=== PATIENT | female | born 1980 | race Caucasian/White ===

== ENCOUNTER 2016-11-01 03:26 | Outpatient (CLI) | payer OTHER ==
[2016-11-01 04:00] VITALS: BMI 35.9
[2016-11-01] MEDS ORDERED: ONDANSETRON 4 MG/2ML 2 ML VIAL IV ONE (04:22)
[2016-11-01] MEDS ORDERED: IV START KIT ONE (04:23)
[2016-11-01] MEDS ORDERED: LACTATED RINGERS 1,000 ML IV SCH ×2 (04:30→05:40)
[2016-11-01] MEDS ORDERED: PANTOPRAZOLE SODIUM 40 MG VIAL IV ONE (05:39)
[2016-11-01] MEDS ORDERED: SODIUM CHLORIDE 0.9% FLUSH 10 ML ONE ×2 (05:45→06:06)
--- NOTE | 2016-11-01 07:38 | PCMOBT ---
OB Triage - Subjective JANETH DAMICO is a 36 year old at 38 who presents to L & D triage c/ o nausea, vomiting, and diarrhea since yesterday. She was having abdominal pain and was worried about the . She is scheduled for c/section #3 and BTL. Review of Systems: Nausea, Vomiting, Movement, Other (No vag bleeding, no discharge) - Physical Exam Neurological: Alert, Oriented X4 Respiratory: Clear to Auscultation Cardiac: Regular Rate Abdomen: Soft, Non Tender, Gravid Contractions: Present (mild and irregular) - Pelvic Exam Cervix: Closed and Long (per RN) - Heart Tones Baseline: 130 (variability improved after 2 liters of fluid.) Variability: Minimal Accelerations: Present Decelerations: Non-Present - Assessment/ Plan 36 year old , prev c/section x2, at 38w6d here for n/v/diarrhea. Pt thought to have a viral gastroenteritis. She felt much better after IV fluids and zofran and pantoprazole. She has had some PO intake. FH is category 1 with no evidence of labor. Pt is discharged home to recuperate further. The plan is that she will return tomorrow for her RCS and BTL. Return precautions given: including that she should return if she has decreased movement, if she has LOF, vaginal bleeding or contractions such that she thinks she's in labor.
== END 2016-11-01 07:12 | disposition home or self-care (01) ==
LOC: FBCOUT 03:26 → FBC 03:26 → FBCOUT 07:12
PROVIDERS: ATTEND Obstetrics & Gynecology
DX: O21.2 Late vomiting of pregnancy (principal); O26.893 Other specified pregnancy related conditions, third trimester; R19.7 Diarrhea, unspecified; Z3A.38 38 weeks gestation of pregnancy
CPT/HCPCS: 96374; 96361; 59025; 81002; C9113; J2405; J7120 ×2; G0463

== ENCOUNTER 2016-11-02 05:16 | Inpatient (IN) | payer OTHER ==
--- NOTE | 2016-10-29 11:54 | HP ---
JANETH DAMICO : 1980 DATE OF ADMISSION: November 02, 2016 HISTORY OF PRESENT ILLNESS: This is a 36-year-old female admitted for a repeat section at 39 weeks. She offers no complaints and at the last exam the baby was moving. OB HISTORY: 3, para 2, 0/0/2, two sections. The first one was done for prolonged rupture of membranes and pushed three hours. That was an 8 pound 6 ounce baby. The second one was a repeat section of a 7 pound 12 ounce baby. BOLT MAN HISTORY: Menarche 11 times 36 times 5. PAST MEDICAL HISTORY: Oral herpes. ALLERGIES: DAIRY FOODS. PAST SURGICAL HISTORY: 1. section times two. 2. Urethral dilatation as a child. SOCIAL HISTORY: Nonsmoker, nondrinker. FAMILY HISTORY: Negative. REVIEW OF SYSTEMS: Baby is moving and noncontributory other than that. PHYSICAL EXAM: GENERAL: This is a healthy female in no acute distress. HEENT: Normal. NECK: Supple. Thyroid not palpable. BREASTS: Soft, no masses. HEART: Regular sinus rhythm. LUNGS: Clear. ABDOMEN: Gravid 39 cm. heart present. Vertex presentation and Pfannenstiel incision. PELVIC: Last pelvic exam cervix was fingertip dilated, 20% effaced, vertex -3. ASSESSMENT AND PLAN: Term and previous section, multiparity. She is requesting a tubal ligation. Risks, reasons, and complications, living will and alternatives were discussed. Failure of tubal ligation quoted as 1 to 2% discussed all in lay person's terms and all questions answered.
[2016-11-02] MEDS ORDERED: LACTATED RINGERS 1,000 ML ONE (05:21)
[2016-11-02] MEDS ORDERED: IV START KIT ONE (05:21)
[2016-11-02] MEDS ORDERED: CEFAZOLIN SODIUM 2 GRAM DUPLEX 2 G in Premix (D5W) 50 ml 1 EACH IV PRN (05:24)
[2016-11-02] MEDS: LACTATED RINGERS 1,000 ML IV SCH ×4 (05:30→12:34)
[2016-11-02] MEDS ORDERED: CEFAZOLIN SODIUM 2 GRAM DUPLEX 50 ML IV ONE (05:48)
[2016-11-02 05:51] LABS: HEMATOCRIT 39.6 % (37.0-47.0); HEMOGLOBIN 12.9 gm/l (12.0-16.0); MEAN CELL VOLUME 85.7 fl (81.0-99.0); MEAN CORPUSCULAR HEMOGLOBIN 27.9 pg (27.0-31.0); MEAN CORPUSCULAR HGB CONC 32.6 g/dl (33.0-37.0); RED CELL DISTRIBUTION WIDTH 14.4 % (11.5-14.5)
[2016-11-02 06:12] VITALS: BMI 35.6
[2016-11-02] MEDS ORDERED: SPINAL PROCEDURAL TRAY 1 EACH ONE (07:06)
[2016-11-02] MEDS ORDERED: OXYTOCIN 10 UNITS/ML VIAL ONE ×3 (07:08→08:26)
[2016-11-02] MEDS ORDERED: MORPHINE SULFATE (DURAMORPH) 1 MG/ML 10ML AMP ONE (07:08)
[2016-11-02] MEDS ORDERED: ONDANSETRON 4 MG/2ML 2 ML VIAL ONE (07:08)
[2016-11-02] MEDS ORDERED: EPHEDRINE SULFATE UD SYR 25 MG 25 MG/5 ML SYRINGE IV ONE ×2 (07:24→08:40)
[2016-11-02] MEDS ORDERED: NALOXONE HCL 0.4 MG/ML VIAL IV PRN (08:00)
[2016-11-02] MEDS ORDERED: ONDANSETRON 4 MG/2ML 2 ML VIAL IV PRN ×2 (08:00→09:15)
[2016-11-02] MEDS ORDERED: PROMETHAZINE HCL 25 MG/ML VIAL IM PRN (08:00)
[2016-11-02] MEDS ORDERED: EPHEDRINE SULFATE 50 MG/ML 1ML VIAL IV PRN (08:00)
[2016-11-02] MEDS ORDERED: HYDROMORPHONE HCL 2 MG/ML SYRINGE IV PRN (08:00)
[2016-11-02] MEDS ORDERED: DIPHENHYDRAMINE HCL 50 MG/1 ML VIAL IV PRN ×2 (08:00→09:15)
[2016-11-02] MEDS ORDERED: FLU VACC 2016-17 (36MO-64Y)/PF 60 MCG/0.5 ML SYRINGE IM V ONE (08:18)
[2016-11-02] MEDS ORDERED: FENTANYL 100 MCG/2 ML VIAL ONE (08:44)
--- NOTE | 2016-11-02 09:14 | PCMBPN ---
Brief Post Op Note: Date of Procedure: 11/02/16 Start Time: Preoperative Diagnosis: 1. intrauterine at term, multiparity, previous cesarian section Postoperative Diagnosis: 1. Same Procedure: repeat lower segment cesarian section, bilateral tubal ligation by mary technique Surgeon: Justus Delgado Assist:ms clarky kalyani Anesthesia: ms benitez, spinal Findings: term sized uterus, both ovaries and tubes normal, clear amniotic fluid , live baby girl, 9/9, oumar position, placenta intact Condition: stable Complications: none IV Fluids: mLs of LR Urine Output: clear yellow urine mLs Estimated Blood Loss: 700 mLs Tourniquet Time: N/A Specimens: N/A Implants: Drains: N/A closure: lori patient tolerated procedure well and was returned to recovery room in stable condition with warren draining clear yellow urine.
[2016-11-02] MEDS ORDERED: LANOLIN 50 APPLIC/7G TUBE TP PRN (09:15)
[2016-11-02] MEDS ORDERED: DIPHENHYDRAMINE HCL 25 MG CAPSULE PO PRN (09:15)
--- NOTE | 2016-11-02 10:18 | OP ---
Adenike Khan : 1980 [id number] NAME OF OPERATION: Repeat lower segment section and a bilateral tubal ligation by Marion technique. PREOPERATIVE DIAGNOSES: 1. Intrauterine at term. 2. Previous section. 3. Multiparity. POSTOPERATIVE DIAGNOSES: 1. Intrauterine at term. 2. Previous section. 3. Multiparity. MANAGER MEDIA: Dr. Justus Valdez RETAIL LOSS PREVENTION SPECIALIST: Ms. Christy Jaime ANESTHESIA: Ms. Sparks, Spinal. DESCRIPTION OF PROCEDURE: Dictation begins with patient under spinal anesthesia in the supine position. The abdomen was prepared with Chloraprep and draped in the usual manner for pfannenstiel incision. After a timeout was performed the skin was tested and found to be with complete anesthesia. A knife was then used to make a pfannenstiel incision through the previous incision. The subcutaneous tissue was then dissected down to the rectus abdominis fascia which was nicked with knife and then carried laterally with Smith scissors. All bleeding points were clamped with Patricia's and bovied. The superior portion of the fascia was grasped with Raven clamps. The median raphe divided with the Smith scissors and a similar procedure was performed on the lower end of the incision. The muscle was split in the mid portion using the knife and then stretched laterally. Peritoneum was then grasped with two Patricia clamps, divided in between with the Metzenbaum scissors, and stretched laterally. Findings included multiple pelvic adhesions, a term sized uterus, and both ovaries and tubes normal. A Manfred retractor was inserted into the lower end of the incision. The anterior visceroperitoneum was grasped with a tissue forceps, nicked with the Metzenbaum scissors, carried laterally with the same scissors and bluntly dissected down and placed underneath the Manfred retractor. The knife was then used to make a lower uterine incision which was stretched laterally. There was clear amniotic fluid noted. The baby was delivered from the PEYTON position by vacuum extraction. The vacuum was placed in the mid sagittal suture line 1.5 cm in front of the posterior fontenelle. The vacuum did not slip and the delivery with the vacuum extractor took less than 1 minute and it was uneventful. The rest of the baby was delivered uneventfully. The baby was suctioned prior to the first breath and cried spontaneously. It was a live baby girl. 9 and 9 at one and five minutes respectively. The cord was clamped twice with two Patricia clamps, divided in between with bandage scissors and then baby was given to the nursing team for care. Cord blood was obtained and then the placenta was delivered manually and intact. Ring forceps were placed at the 3, 6, 9, and 12 o'clock positions of the uterus and the uterus was closed in two layers using 1 Chromic continuous interlocking sutures. There was an additional bleeding point that was sutured on the right corner with the same suture material resulting in complete hemostasis. Next, the tubal ligation was performed. The left fallopian tube was grasped with a [place] clamp. A suture of 3-0 Plain was placed through the mesosalpinx and around the tube creating a knuckle of tube, it was held in place with a Patricia clamp and then a free tie of the same material was placed beneath the first and then knuckle of tube was dissected away. The edges were bovied resulting in complete hemostasis. This was repeated on the opposite tube making sure to identified it down to its fimbriated portion. Now with complete hemostasis the rectus abdominis muscles were reapproximated with 1 Chromic material x4 sutures. The rectus muscles on the right side had been cut approximately 1/2 inch for delivery of the baby and this was repaired with the same suture material resulting in complete hemostasis. The fascia was closed in right and left halves with 1 Vicryl material locking the first stitch and that was done in a continuous manner. The subcutaneous bleeding points were bovied prior to closure of skin. The skin was closed with lori. Estimated blood loss 700 mL. The patient tolerated the procedure well and was returned to recovery room in stable condition with the Triana draining clear yellow urine. Patient did receive 2 gm of Ancef prior to the incision. FINAL DIAGNOSIS: As above. JOB: [id number]
[2016-11-02] MEDS: HYDROMORPHONE HCL 1 MG/ML SYRINGE IV PRN ×2 (10:49→12:34)
[2016-11-02] MEDS: KETOROLAC TROMETHAMINE 30 MG/ML 1 ML VIAL IV SCH ×3 (15:49→21:55)
[2016-11-02] MEDS ORDERED: RHOGAM 300 MCG SYRINGE IV ONE (19:18)
[2016-11-02] MEDS: DOCUSATE SODIUM 100 MG CAPSULE PO SCH (21:54)
[2016-11-03] MEDS: LACTATED RINGERS 1,000 ML IV SCH ×2 (01:25→08:03)
[2016-11-03] MEDS: OXYCODONE/ACETAMINOPHEN 5/325 MG TABLET PO PRN ×5 (01:40→19:00)
[2016-11-03] MEDS: KETOROLAC TROMETHAMINE 30 MG/ML 1 ML VIAL IV SCH (04:56)
[2016-11-03 06:32] LABS: HEMOGLOBIN 10.1 gm/l (12.0-16.0)
[2016-11-03] MEDS: DOCUSATE SODIUM 100 MG CAPSULE PO SCH ×2 (09:48→20:50)
[2016-11-03] MEDS: PRENATAL VIT/FE FUMARATE/FA 1 TABLET PO SCH (09:48)
--- NOTE | 2016-11-03 10:33 | PDOC44 ---
- Subjective Day: 1 (feels well, offers no complaints) Reports Flatus, Reports Pain Tolerable, Reports , Reports Lochia Light, Reports Tolerating Clear Liquids, Reports Tolerating Regular Diet, Denies Nausea, Denies Vomiting, Denies Fever - Objective Temp Pulse Resp BP Pulse Ox 98.1 F 61 16 96/53 11/03/16 07:42 11/03/16 07:42 11/03/16 07:42 11/03/16 07:42 Lab Results 11/03/16 05:10 Hgb 10.1 L D Hct 31.0 L Current Medications Generic Name Dose Route Start Last Admin Trade Name Freq PRN Reason Stop Dose Admin Diphenhydramine HCl 25 - 50 mg 11/02/16 09:15 Benadryl PO Q6H PRN Itching (Mild/Moderate) Docusate Sodium 100 mg 11/02/16 21:00 11/03/16 09:48 Colace PO 100 mg BID SUJIT Administration Emollient Ointment 1 applic 11/02/16 09:15 [id number] TP PRN PRN sore nipples Ibuprofen 800 mg 11/02/16 09:15 Motrin PO Q8H PRN Pain Multivi/Iron Carb/Fe Sulf/FA/Prenat 1 tab 11/03/16 09:00 11/03/16 09:48 Plus PO 1 tab DAILY SUJIT Administration Oxycodone/Acetaminophen 1 - 2 tab 11/02/16 09:15 11/03/16 09:48 Percocet 5/325 PO 1 tab Q4H PRN Administration Pain (Moderate) - Physical Exam General: Afebrile, No Acute Distress Psych/Mental Status: Mood/Affect Appropriate, Judgment/Insight Intact, Bonding Well Lungs: Clear to Auscultation Bilaterally, Normal Air Movement Breast: Soft, Skin intact, Nipples Intact, No Tenderness, No Erythema, No Engorged Fundus: Firm, Midline, Below Umbilicus, Other (nontender) Abdomen: Normal Bowel Sounds, Other (passed flatus, no bowel movement yet), No Tenderness, No Distention Genitourinary: Other (voiding without difficulty) Lochia: Light Extremities: No Tenderness Wound TANK FILLER: Dressing in Place, Dressing Clean/Dry/Intact - Problems:Assessment/Plan (1) Anemia, Status: Acute Disposition: Stable (iron supplementation ordered.)
[2016-11-03] MEDS: IBUPROFEN 800 MG TABLET PO PRN ×2 (10:51→18:59)
[2016-11-03] MEDS ORDERED: DIPHTH,PERTUSS(ACELL),TET VAC 0.5 ML VIAL IM V ONE (11:43)
[2016-11-03] MEDS ORDERED: FLU VACC 2016-17 (36MO-64Y)/PF 60 MCG/0.5 ML SYRINGE IM V ONE (11:45)
[2016-11-04] MEDS: OXYCODONE/ACETAMINOPHEN 5/325 MG TABLET PO PRN ×4 (00:06→16:43)
[2016-11-04] MEDS: IBUPROFEN 800 MG TABLET PO PRN ×3 (03:03→19:27)
[2016-11-04] MEDS: PRENATAL VIT/FE FUMARATE/FA 1 TABLET PO SCH (10:09)
[2016-11-04] MEDS: DOCUSATE SODIUM 100 MG CAPSULE PO SCH ×2 (10:09→20:41)
--- NOTE | 2016-11-04 11:33 | PDOC44 ---
- Subjective Day: 2 (feels well, tired) Reports Flatus, Reports Pain Tolerable, Reports , Reports Lochia Light, Reports Tolerating Clear Liquids, Reports Tolerating Regular Diet, Denies Nausea, Denies Vomiting, Denies Fever - Objective Temp Pulse Resp BP Pulse Ox 97.9 F 70 18 104/57 11/04/16 07:30 11/04/16 07:30 11/04/16 07:30 11/04/16 07:30 Current Medications Generic Name Dose Route Start Last Admin Trade Name Freq PRN Reason Stop Dose Admin Diphenhydramine HCl 25 - 50 mg 11/02/16 09:15 Benadryl PO Q6H PRN Itching (Mild/Moderate) Docusate Sodium 100 mg 11/02/16 21:00 11/04/16 10:09 Colace PO 100 mg BID SUJIT Administration Emollient Ointment 1 applic 11/02/16 09:15 [id number]-Shkcii TP PRN PRN sore nipples Ibuprofen 800 mg 11/02/16 09:15 11/04/16 03:03 Motrin PO 800 mg Q8H PRN Administration Pain Multivi/Iron Carb/Fe Sulf/FA/Prenat 1 tab 11/03/16 09:00 11/04/16 10:09 Plus PO 1 tab DAILY SUJIT Administration Oxycodone/Acetaminophen 1 - 2 tab 11/02/16 09:15 11/04/16 10:09 Percocet 5/325 PO 1 tab Q4H PRN Administration Pain (Moderate) - Physical Exam General: Afebrile, No Acute Distress Psych/Mental Status: Mood/Affect Appropriate, Judgment/Insight Intact, Bonding Well Lungs: Clear to Auscultation Bilaterally, Normal Air Movement Breast: Soft, Skin intact, Nipples Intact, No Tenderness, No Erythema, No Engorged Fundus: Firm, Midline, Below Umbilicus, Other (nontender) Abdomen: Normal Bowel Sounds, Other (flatus passed, no bowel movement yet), No Tenderness, No Distention Genitourinary: Other (voiding without difficulty) Lochia: Light Extremities: No Tenderness Wound DIGITAL CARTOGRAPHIC TECHNICIAN: Dressing in Place, Dressing Clean/Dry/Intact, Well Approximated, [place] Intact, No Drainage, No Erythema, No Edema - Problems:Assessment/Plan (1) Anemia, Status: Acute (2) Postoperative anemia due to acute blood loss Status: Acute Disposition: Stable, Anticipate DC Home Tomorrow, Other (start iron supplementation)
[2016-11-04] MEDS: FERROUS SULFATE (65 Fe) 325 MG TABLET PO SCH (16:42)
[2016-11-05] MEDS: OXYCODONE/ACETAMINOPHEN 5/325 MG TABLET PO PRN ×3 (02:10→11:53)
[2016-11-05] MEDS: IBUPROFEN 800 MG TABLET PO PRN (05:34)
[2016-11-05] MEDS: FERROUS SULFATE (65 Fe) 325 MG TABLET PO SCH (07:57)
[2016-11-05] MEDS: DOCUSATE SODIUM 100 MG CAPSULE PO SCH (07:58)
[2016-11-05] MEDS: PRENATAL VIT/FE FUMARATE/FA 1 TABLET PO SCH (07:58)
--- NOTE | 2016-11-05 08:49 | PDOC39B ---
Hospital Course: ADMIT DATE: 11/02/16 DISCHARGE DATE: 11/05/16 ADMISSION DIAGNOSES: Term , previous c/section, desires repeat c/ section and sterilization PROCEDURES: Repeat c/section and bilateral tubal ligation HISTORY OF PRESENT ILLNESS: 36 year old G3 T2 L2 at 39 weeks 0 days presenting with term , previous c/section; desires sterilization. HOSPITAL COURSE: The patient had a repeat c/section with bilateral tubal ligation. Patient had an uncomplicated hospital course. A Female 9/9 apgars, 7lbs 13oz was delivered. By day of discharge the patient is ambulating, eating, voiding, and passing flatus without difficulty. Pain is controlled and lochia is appropriate. She is []. Patient discharged with percocet, motrin, and dulcolax. Patient discharged on POD#3 and will f/u for lori removal. - Physical Exam Vital Signs: Temp Pulse Resp BP Pulse Ox 98.3 F 78 16 98/54 11/05/16 02:02 11/05/16 02:02 11/05/16 02:02 11/05/16 02:02
[2016-11-05 09:08] VITALS: BP 113/52
--- NOTE | 2016-11-07 13:54 | SURGPATH ---
[facility] [address] [place] [id number] Patient Name: JANETH DAMICO MR#: [id number] : 1980 Gender: F Specimen #: [id number] Collected: 11/02/2016 Received: 11/05/2016 Reported: 11/07/2016 Submitting Phys: SEGUNDO JARRELL I Copy To Phys: [facility] [place] CLARY ALEJANDRO Clinical History / Pre-Operative Diagnosis: NONE PROVIDED Specimen Source / Surgical Procedure Performed: RIGHT FALLOPIAN TUBE SEGMENT (WITH STITCH), LEFT FALLOPIAN TUBE SEGMENT Interpretation: RIGHT AND LEFT FALLOPIAN TUBES, TUBAL LIGATION: -SEGMENTS OF FALLOPIAN TUBES PRESENT Electronically Signed Out Bran Nichols M.D. Gross Description: The specimen is received in a formalin filled container labeled with the patient's name and "left and right fallopian tubes". Two cylindrical segments of davis tissue are 0.8 x 0.5 cm 1.3 x 0.5 cm. The shorter segment has an attached suture and is inked black. A business services sales representative cross section of each is submitted in one cassette. Moody Rinaldi PDanielle. Microscopic Description: A slide contains unremarkable cross sections of both fallopian tubes. 1: [id number](8) Y19.2
== END 2016-11-05 12:52 | disposition home or self-care (01) | DRG 766 ==
LOC: FBC 05:16
PROVIDERS: ADMIT Obstetrics & Gynecology; ATTEND Obstetrics & Gynecology
PROC: 10D00Z1 Extraction of Products of Conception, Low, Open Approach (ICD-10-PCS; principal; 2016-11-02)
PROC: 0UL70ZZ Occlusion of Bilateral Fallopian Tubes, Open Approach (ICD-10-PCS; 2016-11-02)
DX: O34.211 Maternal care for low transverse scar from previous cesarean delivery (principal); Z30.2 Encounter for sterilization; O09.43 Supervision of pregnancy with grand multiparity, third trimester; Z37.0 Single live birth; Z3A.39 39 weeks gestation of pregnancy